=== PATIENT | male | born 1970 | race Two or more races ===

== ENCOUNTER 2024-01-27 19:51 | Emergency (ER) | payer MEDICAID, SELFPAY ==
[2024-01-27 19:52] VITALS: BMI 37.5
--- NOTE | 2024-01-27 19:57 | EKG_ITS ---
[facility] (Formerly [facility]) Test Date: 2024-01-27 Pat Name: CARMEN CAMEJO Department: Room: - Gender: Male Keypunch Operator: : 1970 Requested By: ED Temporary Provider Order Number: [id number] Reading MD: ED Temporary Provider Measurements Intervals [place] Rate: 67 P: 40 OH: 188 QRS: -5 QRSD: 118 T: 22 QT: 380 QTc: 403 Interpretive Statements SINUS RHYTHM MODERATE INTRAVENTRICULAR CONDUCTION DELAY [110+ ms QRS DURATION] Compared to ECG 06/18/2023 12:04:58 Intraventricular conduction delay now present /store/S0/[id number]/[id number].pdf
[2024-01-27 20:02] VITALS: BP 145/83; PULSE 71; RESP 17; TEMP 36.9; O2SAT 96
--- NOTE | 2024-01-27 20:25 | XR_ITS ---
Examination: PA lateral chest 2 views Technique: Upright PA lateral chest 2 views Exam date and time: January 27, 2024 at 2037 hrs. Comparison June 18, 2023 Indications: Left-sided chest pain today. Findings: Normal heart size The lungs are clear. The osseous structures are intact Impression: No active disease
--- NOTE | 2024-01-27 20:25 | PD.EDRME ---
Rapid Medical Screening Exam [facility] Arrival date/time: 01/27/24 19:51 53M with history of HTN and DM presents to ED with L shoulder/upper back/CP and some SOB. 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 Chief Complaint: Chest Pain Vital signs: Vital Signs Temperature 98.4 F 01/27/24 20:02 Pulse Rate 71 01/27/24 20:02 Respiratory Rate 17 01/27/24 20:02 Blood Pressure 145/83 H 01/27/24 20:02 Pulse Oximetry (%) 96 01/27/24 20:02 Oxygen Delivery Method Room Air 01/27/24 20:02
[2024-01-27 21:03] LABS: Basophils # (Auto) 0.1 Thou/mm3 (0.0-0.2); Basophils % (Auto) 1 % (0-2.5); Eosinophils # (Auto) 0.1 Thou/mm3 (0.0-0.5); Eosinophils % (Auto) 1 % (0-10); Hematocrit 44.9 % (41.0-53.0); Hemoglobin 15.2 g/dL (13.5-16.0); Immature Granulocytes % (Auto) 0 % (0-0); Immature Granulocytes Auto 0.01 Thou/mm3 (0.00-0.00); Lymphocytes # (Auto) 1.6 Thou/mm3 (1.0-4.8); Lymphocytes % (Auto) 21 % (10-50); Mean Corpuscular HGB Conc 33.9 g/dl (31.0-37.0); Mean Corpuscular Hemoglobin 30.5 pg (25.0-35.0); Mean Corpuscular Volume 90 fL (80-100); Monocytes # (Auto) 0.5 Thou/mm3 (0.0-0.8); Monocytes % (Auto) 6 % (0-12); Neutrophils # (Auto) 5.5 Thou/mm3 (1.8-7.7); Neutrophils % (Auto) 71 % (37-80); Nucleated Red Blood Cell % 0 /100 WBC (0); Platelet Count 191 Thou/mm3 (140-440); RDW Standard Deviation 43.5 fL (35.1-43.9); Red Blood Count 4.98 Miln/mm3 (4.50-5.90); White Blood Count 7.7 Thou/mm3 (3.8-10.6)
[2024-01-27 21:11] LABS: Partial Thromboplastin Time 24.9 Seconds (22.0-36.0)
[2024-01-27 21:17] LABS: Alanine Aminotransferase 22 U/L (10-49); Albumin, Serum 4.7 gm/dL (3.5-5.0); Albumin/Globulin Ratio 1.4 (1.2-2.2); Alkaline Phosphatase 74 U/L (46-116); Anion Gap 6 (7-16); Aspartate Amino Transferase 19 U/L (0-34); BUN/Creatinine Ratio 20 Ratio (12-20); Bilirubin,Total 0.3 mg/dL (0.3-1.2); Blood Urea Nitrogen 18 mg/dL (9-23); Calcium 9.3 mg/dL (8.3-10.6); Calcium (Corrected) 9.3 mg/dL (8.5-10.1); Carbon Dioxide 27.2 mMol/L (20.0-31.0); Chloride 104 mMol/L (98-107); Creatinine (Component) 0.9 mg/dL (0.6-1.3); Estimated Creatinine Clearance 134.2 mL/min (>60); Globulin 3.3 gm/dL (2.3-3.5); Glucose 199 mg/dL (74-106); Osmolality,Calculated 281 (275-295); Potassium 4.3 mMol/L (3.4-5.1); Sodium 137 mMol/L (136-145); Troponin I < 0.002 ng/mL (0.0-0.045); eGFR > 60 See Note
[2024-01-28 00:01] VITALS: BP 120/79; PULSE 63; RESP 19; TEMP 36.6; O2SAT 96
[2024-01-28 02:24] VITALS: BP 142/81; PULSE 67; RESP 18; TEMP 36.6; O2SAT 96
[2024-01-28 04:15] VITALS: BP 134/81; PULSE 67; RESP 19; TEMP 37.1; O2SAT 98
--- NOTE | 2024-01-28 04:15 | PD.EDCHEST ---
ED Chest Pain RME/HPI General Chief Complaint: Chest Pain Stated Complaint: Chest pain X1 day Arrival date/time: 01/27/24 19:51 Limitations: no limitations RME / HPI RME / HPI narrative: 01/27/24 19:51 53M with history of HTN and DM presents to ED with L shoulder/upper back/CP and some SOB. 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 ---- Dr. Moreau's Main ED Evaluation: 53yo male with a history of DM, HTN presents to the ED for a chief complaint of left-sided chest pain x 1800 on 01/26/24. Patient states his pain is constant and radiates to his back. It does not worsen when he eats or moves. He denies any history of similar symptoms. He denies any falls or injuries. No known allergies. Patient states he used to see a board hammer operator, but no longer does. He is compliant with his medications. PCP: [facility] Related Data Home Medications ?Medication ?Instructions ?Recorded ?Confirmed Venlafaxine * (EFFEXOR *) 37.5 mg PO QDAY ##30 10/15/16 07/07/19 canagliflozin 300 mg tablet 300 mg PO QDAY ##30 10/15/16 07/07/19 (Invokana) ergocalciferol (vitamin D2) 1,250 50,000 unit PO WEKLY ##4 10/15/16 07/07/19 mcg (50,000 unit) capsule (Vitamin D2) furosemide 20 mg tablet 20 mg PO QDAY ##30 10/15/16 07/07/19 hydrochlorothiazide 25 mg tablet 25 mg PO QDAY ##30 10/15/16 07/07/19 lisinopril 10 mg tablet 10 mg PO QDAY ##30 10/15/16 07/07/19 loratadine 10 mg tablet 10 mg PO QDAY ##30 10/15/16 07/07/19 naproxen 500 mg tablet 500 mg PO PRN PRN PAIN ##60 10/15/16 07/07/19 nitroglycerin 0.4 mg sublingual 0.4 mg SL PRN PRN SEBASTIAN ##25 10/15/16 07/07/19 tablet ramipril 10 mg capsule 10 mg PO QDAY ##30 10/15/16 07/07/19 simvastatin 40 mg tablet 40 mg PO QDAY ##30 10/15/16 07/07/19 aspirin 81 mg tablet,delayed 81 mg PO QDAY 04/06/19 07/07/19 release metformin 1,000 mg tablet 1,000 mg PO BID 04/06/19 07/07/19 tamsulosin 0.4 mg capsule 0.4 mg PO QDAY 04/06/19 07/07/19 Allergies Allergy/AdvReac Type Severity Reaction Status Date / Time NKA* Allergy Uncoded 01/27/24 19:56 Review of Systems Review of Systems Systems Reviewed: All systems reviewed, normal except as documented Past Medical History Past Medical History NEUROLOGIC: Negative Neurological Disorders CARDIAC: Negative Cardiac Disorders or Congestive Heart Failure RESPIRATORY: Negative Respiratory Disorders or Chronic Obstructive Pulmonary Disease (COPD) GASTROINTESTINAL: Negative Gastrointestinal Disorders GENITOURINARY: Negative Genitourinary Disorders or Renal Disease MUSCULOSKELETAL: Negative Musculoskeletal Disorders ENT: Negative History of ENT Problems ENDOCRINE: Positive Endocrine Disorders and Diabetes Mellitus Type 2; Negative Diabetes Mellitus Type 1 HEMATOLOGIC: Negative Blood Disorders OTHER HISTORY: Negative Autoimmune Disease Family History FAMILY HISTORY: Positive Family Cancer (mother had pancreas, colon, liver); Negative Family Psychiatric Problems, Family Respiratory Disorders, Family Cardiac Disorders, Family Gastrointestinal Problems, Family Genitourinary Problems, Family Endocrine Disorders, Family Reproductive Disorders, Family Musculoskeletal Disorders, Family Surgery or Family Anesthesia Reaction Social History SMOKING STATUS: Never smoker ED Exam General Limitations: Present no limitations General appearance: Present alert and in no apparent distress Head Head exam: Present atraumatic Eye Eye exam: Present normal appearance, PERRL and EOMI ENT ENT exam: Present normal exam, normal oropharynx and mucous membranes moist Neck Neck exam: Present normal inspection, full ROM and trachea midline Chest Chest inspection: Present normal inspection and symmetric chest wall rise Respiratory Respiratory exam: Present normal lung sounds bilaterally Cardiovascular Cardiovascular exam: Present regular rate, normal rhythm and normal heart sounds Abdominal Exam Abdominal exam: Present soft and normal bowel sounds Extremities Exam Extremities exam: Present normal inspection and full ROM Back Exam Back exam: Present normal inspection and full ROM Neurological Exam Neurological exam: Present alert, oriented X3 and CN II-XII intact Psychiatric Psychiatric exam: Present normal affect and normal mood Skin Skin exam: Present warm, dry, intact and normal color Course Course Course Narrative: CXR is ordered for determining the etiology of chest pain. 0600: Care signed out to Dr. Gonzalez (emergency physician). Past medical, surgical, social and family history reviewed. Vitals and home medications reviewed. Results and treatment plan discussed. They will assume the care of the patient at this time and will follow the patient, pending CTA. Quality Measures none Orders Category Date Time Status CT Screening NOW Care 01/28/24 04:38 Active EKG (ED ONLY) *Do not use* NOW Care 01/27/24 19:[address] angio chest Stat Exams 01/28/24 04:38 Ordered EKG (ED Only) Stat Exams 01/27/24 19:57 Draft XR chest 2V Stat Exams 01/27/24 20:25 Completed CBC Stat Lab 01/27/24 20:30 Completed Comprehensive Metabolic Panel Stat Lab 01/27/24 20:30 Completed INR [Prothrombin Time with INR] Stat Lab 01/27/24 20:30 Completed PTT [Partial Thromboplastin Time] Stat Lab 01/27/24 20:30 Completed Troponin I Stat Lab 01/27/24 20:30 Completed Troponin I Stat Lab 01/28/24 04:30 Completed Morphine Inj [Morphine Sulf Inj] Med 01/28/24 06:25 Discontinued 2 mg IVP X1 ONE Vital Signs Vital signs: Vital Signs Temperature 98.4 F 01/27/24 20:02 Pulse Rate 71 01/27/24 20:02 Respiratory Rate 17 01/27/24 20:02 Blood Pressure 145/83 H 01/27/24 20:02 Pulse Oximetry (%) 96 01/27/24 20:02 Oxygen Delivery Method Room Air 01/27/24 20:02 Pulse ox is 96% on room air, which is normal according to my interpretation. Chest Pain Patient data External records reviewed:: [facility] previous records (Per chart review, patient was seen here on 06/18/23 for a chest wall contusion.) Clinical information provided by:: patient Social determinants that could affect healthcare access:: none Patient has the following chronic illnesses:: DM, HTN How is presenting disease/condition affected by chronic disease/condition?: uneffected by Evaluation data The following diagnostics were reviewed and interpreted by me:: lab results, radiology exam(s) and EKG tracing(s) Lab and/or radiology exams considered but not ordered:: none Interpretation Summary: CBC is normal, CMP is normal, Initial troponin is normal, repeat troponin is normal, according to my interpretation. EKG done at 2011, NSR, rate of 67, nonspecific ST-T wave changes in lead III, no ST depressions, unchanged from previous EKG done on 06/18/23. --------- I have personally reviewed the radiology data and agree with the radiologist's interpretation below: [facility] Report Signed Patient: CARMEN CAMEJO. Record#: [id number] Birthdate: 1970 Age/Sex: 53 / M Location: [facility] Attending Dr: Ordering Physician: Jimbo Penny PA-C Date of Service: 01/27/24 Procedure(s): XR chest 2V Accession Number(s): [id number] cc: Jay Jay Villatoro MD; Jimbo Penny PA-C; Cal Newton MD~ Examination: PA lateral chest 2 views Technique: Upright PA lateral chest 2 views Exam date and time: January 27, 2024 at 2037 hrs. Comparison June 18, 2023 Indications: Left-sided chest pain today. Findings: Normal heart size The lungs are clear. The osseous structures are intact Impression: No active disease Dictated By: Jay Jay Villatoro MD Signed By: <Electronically signed by Jay Jay Villatoro MD in [place]> 01/27/249 Medications / Prescriptions Medications or Prescriptions considered but not ordered:: none Medication administrations:: Medication Administration History Discontinued Medications Morphine Sulfate (Morphine Sulf Inj 4 Mg/Ml Vial) 2 mg IVP X1 ONE Stop: 01/28/24 06:26 see above, if any Consultations Consultation(s) initiated? (list below): No Diagnosis Chest Pain Differential Diagnosis: other Most likely diagnosis given after review of the tests above:: see below Admission Indicated Admission indicated?: not indicated Admission Request Was there a request for admission?: No Disposition Plan Disposition Plan: other (specify) (Signed out to Dr. Gonzalez at 0600 pending CTA.) Discharge Plan Plan Disposition Comment: stable at sign out Prescriptions/Referrals Prescriptions/Med Rec: No Action metformin 1,000 mg tablet 1,000 mg PO BID aspirin 81 mg tablet,delayed release (DR/EC) 81 mg PO QDAY tamsulosin 0.4 mg capsule 0.4 mg PO QDAY simvastatin 40 MG tablet 40 mg PO QDAY Qty: 30 lisinopril 10 MG tablet 10 mg PO QDAY Qty: 30 nitroglycerin 0.4 MG tablet, sublingual 0.4 mg SL PRN PRN (Reason: SEBASTIAN) Qty: 25 hydrochlorothiazide 25 MG tablet 25 mg PO QDAY Qty: 30 furosemide 20 MG tablet 20 mg PO QDAY Qty: 30 ergocalciferol (vitamin D2) [Vitamin D2] 50,000 UNIT capsule 50,000 unit PO WEKLY Qty: 4 loratadine 10 MG tablet 10 mg PO QDAY Qty: 30 naproxen 500 MG tablet 500 mg PO PRN PRN (Reason: PAIN) Qty: 60 ramipril 10 MG capsule 10 mg PO QDAY Qty: 30 canagliflozin [Invokana] 300 MG tablet 300 mg PO QDAY Qty: 30 Venlafaxine * (EFFEXOR *) 37.5 MG tablet 37.5 mg PO QDAY Qty: 30 Referrals: Cal Newton MD [Primary Care Provider] - In 1 week Problem List Clinical Impression: Chest pain Patient/Caregiver Discharge Instructions Print Language: Bengali
--- NOTE | 2024-01-28 04:38 | XR_ITS ---
Examination: CTA chest with intravenous contrast 2-D reconstructions 3-D reconstructions, vascular Date and time of exam: January 28, 2024 at 0557 hrs. Comparison June 18, 2023 Indications: Onset chest pain today CTDI: vol (mGy) 15.1 DLP: (mGycm) 606 Technique: Multiple axial sections of the thorax have been obtained. 3 mm slice thickness, from below the hemidiaphragms to above the apices of the lungs. Mediastinal and lung density settings have been obtained. 2-D sagittal and coronal reconstructions. 3-D angiographic renderings, 3-D volume renderings, 3D post processing, vascular maximum intensity projections obtained. Contrast administered is 100 cc Isovue-370. Low dose protocols were performed. One or more of the following dose reduction techniques were used; automated exposure control, adjustment of the mA and/or KV according to patient size, use of iterative reconstruction technique. Findings: No thoracic aortic aneurysm dilatation or dissection Pulmonary artery segments are not enlarged No pulmonary artery emboli Mild vascular congestion No lobar pneumonia or pulmonary edema No visualized liver or splenic lesion No gallstones No pancreatic mass 22 mm fat-containing left adrenal nodule Kidneys partially visualized no hydronephrosis Moderate thoracic spondylosis Impression: Negative for pulmonary artery emboli Mild vascular congestion No pneumonia or pulmonary edema
[2024-01-28 05:00] LABS: Troponin I < 0.002 ng/mL (0.0-0.045)
[2024-01-28 06:09] VITALS: BP 133/82; PULSE 63; RESP 18; TEMP 36.6; O2SAT 98
[2024-01-28 07:11] VITALS: BP 147/88; PULSE 61; RESP 22; TEMP 36.5; O2SAT 96
--- NOTE | 2024-01-28 07:34 | EDNOTE_ITS ---
Emergency Room Addendum Addendum Narrative: 0600: Care assumed from Dr. Oleary, the previous shift emergency physician. Past medical, surgical, social and family history reviewed. Vitals and home medications reviewed. I will assume the care of the patient at this time, pending CT angio chest and final disposition. Please refer to the emergency department record for history and examination from initial visit.? Nursing notes reviewed by me. Vital signs reviewed by me. [facility] medical records reviewed by me. Patients last ED visit was 06/18/2023 for chest wall contusion. Patients heart score is 3 which is low risk for cardiac event. 0745: On assessment patient reports pain to his left shoulder, left upper back, and left chest that moves down his left arm that is worse with movements of his neck. Described as a pinching sensation. Reports it began 2 days ago and unchanged since. Patient denies any injury/trauma/falls. Mentioned in he had similar left sided chest pain and during that time diagnosed with extra fluid and enlarged heart . States he followed up with nanotechnology engineering technician twice in [place] and everything got better . Not currently on any prescribed medications however does take Aspirin daily. PCP: Dr. Newton DISPOSITION: Home DIAGNOSIS: Arm pain, left and chest pain RADIOLOGY Ordering Physician: Shruthi Oleary MD Date of Service: 01/28/24 Procedure(s): CT angio chest Accession Number(s): [id number] cc: Jay Jay Villatoro MD; Srhuthi Oleary MD; Cal Newton MD~ Examination: CTA chest with intravenous contrast 2-D reconstructions 3-D reconstructions, vascular Date and time of exam: January 28, 2024 at 0557 hrs. Comparison June 18, 2023 Indications: Onset chest pain today CTDI: vol (mGy) 15.1 DLP: (mGycm) 606 Technique: Multiple axial sections of the thorax have been obtained. 3 mm slice thickness, from below the hemidiaphragms to above the apices of the lungs. Mediastinal and lung density settings have been obtained. 2-D sagittal and coronal reconstructions. 3-D angiographic renderings, 3-D volume renderings, 3D post processing, vascular maximum intensity projections obtained. Contrast administered is 100 cc Isovue-370. Low dose protocols were performed. One or more of the following dose reduction techniques were used; automated exposure control, adjustment of the mA and/or KV according to patient size, use of iterative reconstruction technique. Findings: No thoracic aortic aneurysm dilatation or dissection Pulmonary artery segments are not enlarged No pulmonary artery emboli Mild vascular congestion No lobar pneumonia or pulmonary edema No visualized liver or splenic lesion No gallstones No pancreatic mass 22 mm fat-containing left adrenal nodule Kidneys partially visualized no hydronephrosis Moderate thoracic spondylosis Impression: Negative for pulmonary artery emboli Mild vascular congestion No pneumonia or pulmonary edema Dictated By:Jay Jay Villatoro MD Signed By:<Electronically signed by Jay Jay Villatoro MD in [place]>01/28/24 0717
[2024-01-28] MEDS: MORPHINE SULF INJ 10 MG/ML VIAL 2 MG IVP (07:47)
[2024-01-28 09:31] VITALS: BP 138/86; PULSE 81; RESP 18; TEMP 37; O2SAT 99
== END 2024-01-28 09:34 | disposition home or self-care (01) ==
PROVIDERS: Emergency Medicine; Physician Assistant; Emergency Provider Emergency Medicine; PCP Family Medicine
DX: M79.602 Pain in left arm (principal); R09.89 Other specified symptoms and signs involving the circulatory and respiratory systems; I45.89 Other specified conduction disorders; I10 Essential (primary) hypertension
CPT/HCPCS: 36415; 71046; 71275; 80053; 84484; 85025; 85610; 85730; 93005; 99285; A4649; J2270; Q9967